=== PATIENT | male | born 1985 | race Caucasian/White ===

== ENCOUNTER 2019-03-15 02:02 | Emergency (ER) | payer BC ==
[2019-03-15 02:10] VITALS: TEMP 99.3
[2019-03-15 02:25] LABS: Basophils % (A) 1 %; Eosinophils # (A) 0.2 k/uL (0-0.7); Eosinophils % (A) 3 %; HCT 43.5 % (39.0-53.0); HGB 14.7 gm/dL (13.0-17.5); Lymphocytes # (A) 3.2 k/uL (1.0-4.8); Lymphocytes % (A) 51 %; MCH 30.9 pg (25.0-35.0); MCHC 33.8 g/dL (31.0-37.0); MCV 91.3 fL (80.0-100.0); Mean Platelet Volume 6.4; Monocytes # (A) 0.3 k/uL (0-1.0); Monocytes % (A) 4 %; Neutrophils # (A) 2.4 k/uL (1.3-7.7); Neutrophils % (A) 39 %; Platelet Count 232 k/uL (150-450); RBC 4.76 m/uL (4.30-5.90); RDW 12.1 % (11.5-15.5); WBC 6.3 k/uL (3.8-10.6)
[2019-03-15 02:34] LABS: ALT 32 U/L (21-72); AST 33 U/L (17-59); African American GFR (CKD) >90 (>60 ml/min/1.73 sqM); Albumin 4.3 g/dL (3.5-5.0); Alkaline Phosphatase 56 U/L (38-126); Anion Gap 12 mmol/L; Blood Urea Nitrogen 12 mg/dL (9-20); Calcium 9.1 mg/dL (8.4-10.2); Carbon Dioxide 23 mmol/L (22-30); Chloride 105 mmol/L (98-107); Glucose 119 mg/dL (74-99); INR 0.9 (<1.2); Magnesium 1.7 mg/dL (1.6-2.3); Partial Thromboplastin Time 23.8 sec (22.0-30.0); Potassium 3.6 mmol/L (3.5-5.1); Prothrombin Time 10.1 sec (9.0-12.0); Sodium 140 mmol/L (137-145); Total Bilirubin 0.4 mg/dL (0.2-1.3)
--- NOTE | 2019-03-15 03:03 | XR ---
EXAM: XR Chest, 2 Views CLINICAL HISTORY: ITS.REASON XR Reason: Chest Pain TECHNIQUE: Frontal and lateral views of the chest. COMPARISON: No relevant prior studies available. FINDINGS: Lungs: No consolidation or mass. Pleural space: No effusion. Heart: No cardiomegaly. Mediastinum: Unremarkable. Bones/joints: No acute findings. IMPRESSION: No acute cardiopulmonary process.
--- NOTE | 2019-03-15 03:44 | ED ---
Chest Pain HPI - General Chief Complaint: Chest Pain Stated Complaint: Chest Pain Source: patient Mode of arrival: ambulatory Limitations: no limitations - History of Present Illness Initial Comments: Wang George is a pleasant 33yo M with no past medical history who presents the ER today for evaluation of chest and back pain. Patient reports that he woke from sleep experiencing a tightness in his upper back and chest, he initially thought he had slept funny so he got up drink some water walked around the house he tried Aleve back down but couldn't get comfortable so he decided to lay on the floor. At that time his woke up and was concerned about how uncomfortable he seemed. She tried asking what was going on but he seemed to be breathing fast and appeared uncomfortable at which time she decided to call EMS for transport to the hospital. Patient reports that when EMS arrived he felt like there is tightness around his entire chest and he couldn't catch his breath he was beginning have tingling in his face and arms. He's never expressing like this before reports that symptoms have resolved prior to arrival to the hospital. is a nonsmoker, no illicit drug use, no family history of early cardiac disease, patient is physically fit and exercises regularly without evidence of chest pain or coronary problems. - Related Data Allergies Allergy/AdvReac Type Severity Reaction Status Date / Time No Known Allergies Allergy Verified 03/15/19 02:10 Review of Systems ROS Statement: Those systems with pertinent positive or pertinent negative responses have been documented in the HPI. ROS Other: All systems not noted in ROS Statement are negative. EKG Findings - EKG Comments: EKG Findings:: CT was obtained due to complaint of chest pain, EKG obtained at 280, rate is 89 rhythm is sinus there is normal axis, normal intervals, AR 164, QRS 108, QTC [address] elevations or depressions no evidence of acute ischemia or infarction Past Medical History Past Medical History: No Reported History History of Any Multi-Drug Resistant Organisms: None Reported Past Surgical History: No Surgical Hx Reported Past Psychological History: No Psychological Hx Reported Smoking Status: Never smoker Past Alcohol Use History: Occasional Past Drug Use History: None Reported General Exam - General Exam Comments Initial Comments: Physical Exam GENERAL: Patient is well-developed and well-nourished. Patient is nontoxic and well- hydrated and is in no distress. HENT: Normocephalic, Atraumatic. EYES: PERRL, EOMI PULMONARY: Unlabored respirations. No audible rales rhonchi or wheezing was noted. No chest wall tenderness CARDIOVASCULAR: There is a regular rate and rhythm without any murmurs gallops or rubs. Pulses strong and equal bilaterally ABDOMEN: Soft and nontender with normal bowel sounds. Pulsatile masses SKIN: Skin is clear with no lesions or rashes and otherwise unremarkable. : Deferred NEUROLOGIC: Patient is alert and oriented x3. Moving all extremities spontaneously MUSCULOSKELETAL: Normal extremities with adequate strength and full range of motion. No lower extremity swelling or edema. No calf tenderness. PSYCHIATRIC: Normal psychiatric evaluation. Limitations: no limitations Course Vital Signs 03/15/19 03/15/19 03/15/19 02:06 02:10 03:10 Temperature 99.3 F Pulse Rate 97 73 Respiratory 20 18 16 Rate Blood Pressure 155/93 143/78 O2 Sat by Pulse 99 98 Oximetry 03/15/19 05:52 Temperature Pulse Rate 76 Respiratory 18 Rate Blood Pressure 130/74 O2 Sat by Pulse 98 Oximetry Chest Pain MDM - Core Measures AMI Core Measures Followed: Yes - MDM Patient was seen and evaluated, history is obtained from the patient, EMS and patient's at bedside This is a very healthy 33-year-old male presenting with pressure-like chest pain that he described as tightness around his entire chest and back associated with rapid breathing and tingling in his face and extremities which resolved prior to arrival Physical exam is unremarkable patient has strong equal pulses bilaterally he is not hyperventilating chest sounds are clear there is no chest wall tenderness Cardiac workup was initiated, EKG is nonischemic chest x-ray unremarkable labs within normal limits, given that the patient acute onset of chest pain we will repeat troponin at 3 hours, patient agreeable to this Repeat troponin was again negative HEART score 0 The patient remained asymptomatic throughout his strain half hour stay in the emergency department. He had 2 negative troponins he has a heart score of 0 Sooner workup today there is No evidence of ACS, pericarditis, myocarditis, pulmonary embolism, pneumothorax, pneumonia, Zoster, or esophageal perforation. Historically not abrupt in onset, tearing or ripping, pulses symmetric, no evidence of aortic dissection. Patient will be discharged home, return parameters discussed patient discharged in stable condition Disposition Clinical Impression: Atypical chest pain Disposition: HOME SELF-CARE Condition: Stable Instructions (If sedation given, give patient instructions): Chest Pain (ED) Is patient prescribed a controlled substance at d/c from ED?: No Referrals: None,Stated [Primary Care Provider] - 1-2 days
[2019-03-15 05:53] VITALS: BP 130/74; PULSE 76; RESP 18
== END 2019-03-15 06:05 | disposition home or self-care (01) ==
LOC: EC 02:02
DX: R07.89 Other chest pain (principal); R19.00 Intra-abdominal and pelvic swelling, mass and lump, unspecified site; M54.6 Pain in thoracic spine
CPT/HCPCS: 36415; 71046; 80053; 83735; 84484; 85025; 85610; 85730; 93005; 99285

== ENCOUNTER 2023-06-18 10:40 | Day surgery (SDC) | payer BC ==
[2023-06-16 12:42] VITALS: BMI 24.9
[~2023-06-18 10:40] MED LIST: LACTATED RINGERS 1,000 ML IV SCH
[2023-06-18 11:14] VITALS: TEMP 98.2
[2023-06-18] MEDS ORDERED: PROPOFOL 10 MG/ML 20 ML VIAL IV ONE (12:21)
--- NOTE | 2023-06-18 12:38 | P.PCN ---
Date of Procedure: 06/18/23 Procedure(s) Performed: BRIEF HISTORY: Patient is a 37-year-old pleasant [9scheduled for an elective colonoscopy as a part of screening for colon cancer and family history of colon cancer. His grandfather was diagnosed with colon cancer at age 40. PROCEDURE PERFORMED: Colonoscopy with biopsy PREOPERATIVE DIAGNOSIS: Screening for colon cancer and family history of colon cancer. . IV sedation per Anesthesia. PROCEDURE: After informed consent was obtained, the patient, was brought into the endoscopy unit. IV sedation was administered by Anesthesia under continuous monitoring. Digital rectal examination was normal. Initially the Olympus CF-160 flexible video colonoscope was then inserted in the rectum, gradually advanced into the cecum without any difficulty. Careful examination was performed as the scope was gradually being withdrawn. Ileocecal valve and the appendiceal orifice were visualized and appeared normal. Prep was excellent. Mucosa of the cecum, ascending colon, transverse colon, appeared normal. The descending colon there was a 4 mm polyp that was removed by cold biopsy. Rest of the descending colon, sigmoid colon, and rectum appeared normal. Retroflexion was performed in the rectum and small internal hemorrhoids were seen. The patient tolerated the procedure well. IMPRESSION: 4 mm ascending colon polyp status post cold biopsy Rest of the colon appeared normal Small internal hemorrhoids RECOMMENDATIONS: Findings of this examination were discussed with the patient as well as his family. He was advised to follow with the biopsy results. If the biopsy with adenoma he can have a repeat colonoscopy in 5 years
[2023-06-18 12:52] VITALS: RESP 16
[2023-06-18 13:17] VITALS: BP 119/72; PULSE 71
== END 2023-06-18 13:29 | disposition home or self-care (01) ==
LOC: ORWHC2ENDO 10:40
PROVIDERS: ATTEND Internal Medicine Gastroenterology
DX: Z12.11 Encounter for screening for malignant neoplasm of colon (principal); D12.4 Benign neoplasm of descending colon; K64.8 Other hemorrhoids; Z80.0 Family history of malignant neoplasm of digestive organs
CPT/HCPCS: 88305; 45380; J2704